=== PATIENT | male | born 1960 | race Caucasian/White ===

== ENCOUNTER 2018-05-25 16:38 | Observation (INO) ==
[2018-05-25] MEDS ORDERED: ALBUTEROL/IPRATROPIUM 3 ML NEB RESP TX STA ×3 (17:16→17:17)
[2018-05-25 17:28] LABS: Basophils # 0.1 10*3/uL (0.0-0.2); Basophils % 0.5 % (0.0-0.8); Eosinophils # 0.1 10*3/uL (0.0-0.87); Eosinophils % 0.9 % (0.00-10.9); Hematocrit 51.3 VOL% (42.0-52.0); Hemoglobin 17.1 GM/DL (14.0-18.0); Immature Granulocytes % 0.5 %; Immature Granulocytes Absolute 0.05 #; Lymphocytes % 19.5 % (21.2-54.2); Mean Corpuscular HGB Conc 33.3 GM/DL (32-36); Mean Corpuscular Hemoglobin 32 PG (27-34); Mean Corpuscular Volume 95.2 FL (87-102); Mean Platelet Volume 11.9 FL (9.6-12.0); Monocytes # 0.7 10*3/uL (0.11-0.8); Monocytes % 7.3 % (1.7-12.7); Neutrophils # 7.2 10*3/uL (1.4-7.4); Neutrophils % 71.3 % (38.7-73.9); Platelet Count 171 T/CUMM (130-400); Red Blood Count 5.39 MC/CUMM (3.8-5.5); Red Cell Distribution Width 13.8 % (9.3-17.3); White Blood Count 10.1 T/CUMM (4-12)
[2018-05-25 17:51] LABS: Bilirubin,Total 0.6 MG/DL (0.2-1.0); Calcium 9.5 MG/DL (8.5-10.1); Osmolality,Calculated 289.1 MOS/KG (273-304); Potassium 4.1 MMOL/L (3.5-5.1); Total Protein 7.3 G/DL (6.4-8.3)
[2018-05-25 17:54] LABS: ABG HCO3 23.6 MMOL/L (20-26); ABG Oxygen Saturation 97.2 % (95-100); ABG PCO2 40.4 MM HG (35-48); ABG PH 7.382 (7.35-7.45); ABG PO2 76.2 MM HG (80-95); ABG TCO2 19.9 MMOL/L (23-27)
[2018-05-25 18:01] LABS: Lactic Acid 1.1 MMOL/L (0.4-2.0)
[2018-05-25 18:16] LABS: Apearance,Urine CLEAR (Clear); Bilirubin,Urine Negative (Negative); Blood, Urine Moderate mg/dL (Negative); Glucose,Urine (UA) Negative (Negative); Ketones,Urine 20 mg/dL (Negative); Mucus,Urine Occasional /LPF (Occasional); Nitrite,Urine Negative (Negative); Protein,Urine 100 MG/DL; RBC,Urine 26 /HPF (0-4); Squamous Epithelial Cell,Urine Occasional /HPF (0-10); Urine Color Yellow (Yellow); Urine Specific Gravity 1.021 (1.001-1.035); WBC,Urine 6 /HPF (0-6)
[2018-05-25] MEDS ORDERED: DOXYCYCLINE HYCLATE 100 MG CAPSULE PO STA (18:57)
[2018-05-25] MEDS ORDERED: methylPREDNISolone SOD SUC 125 MG/2 ML VIAL IV STA (18:57)
[2018-05-25] MEDS ORDERED: DEXTROSE 50% 25 GM/50 ML VIAL IV PRN (19:46)
[2018-05-25] MEDS ORDERED: GLUCAGON 1 MG VIAL IM PRN (19:46)
[2018-05-25] MEDS ORDERED: ACETAMINOPHEN 325 MG TABLET PO PRN (19:46)
[2018-05-25] MEDS ORDERED: ONDANSETRON 4 MG/2 ML VIAL IV PRN (19:46)
[2018-05-25] MEDS: BRIMONIDINE 0.1% OPH SOLN 5 ML BOTTLE LEFT EYE SCH (21:59)
[2018-05-25] MEDS: PREGABALIN 75 MG CAPSULE PO SCH (21:59)
[2018-05-25] MEDS: ATORVASTATIN 40 MG TABLET PO SCH (21:59)
[2018-05-25] MEDS: BUDESONIDE/FORMOTEROL 80-4.5 INHALER 6.9 GM INH SCH (22:00)
[2018-05-25] MEDS: ENOXAPARIN 40 MG/0.4 ML SYRINGE SUBCUT SCH (22:00)
[2018-05-25] MEDS: SODIUM CHLORIDE 0.9% 1,000 ML IV SCH (22:07)
[2018-05-25] MEDS: INSULIN LISPRO 100 UNIT/ML SUBCUT SCH (22:10)
[2018-05-26] MEDS: ALBUTEROL/IPRATROPIUM 3 ML NEB RESP TX SCH ×4 (00:20→19:32)
[2018-05-26 05:31] LABS: Basophils % 0.3 % (0.0-0.8); Hematocrit 48.5 VOL% (42.0-52.0); Hemoglobin 15.6 GM/DL (14.0-18.0); Immature Granulocytes % 0.4 %; Immature Granulocytes Absolute 0.03 #; Mean Corpuscular HGB Conc 32.2 GM/DL (32-36); Mean Corpuscular Hemoglobin 31 PG (27-34); Mean Corpuscular Volume 95.8 FL (87-102); Mean Platelet Volume 12.3 FL (9.6-12.0); Monocytes # 0.1 10*3/uL (0.11-0.8); Monocytes % 1.1 % (1.7-12.7); Neutrophils # 6.2 10*3/uL (1.4-7.4); Neutrophils % 84.2 % (38.7-73.9); Platelet Count 169 T/CUMM (130-400); Red Blood Count 5.06 MC/CUMM (3.8-5.5); Red Cell Distribution Width 13.7 % (9.3-17.3); White Blood Count 7.4 T/CUMM (4-12)
[2018-05-26 05:52] LABS: Osmolality,Calculated 284.5 MOS/KG (273-304); Potassium 4.1 MMOL/L (3.5-5.1)
[2018-05-26] MEDS ORDERED: INFLUENZA VIRUS VACCINE 0.5 ML SYRINGE IM ONE (09:00)
[2018-05-26] MEDS: cefTRIAXone 1,000 MG in SYRINGE 1 EACH IV SCH (09:29)
[2018-05-26] MEDS: AZITHROMYCIN 250 MG TABLET PO SCH (09:30)
[2018-05-26] MEDS: glipiZIDE 10 MG TABLET PO SCH (09:33)
[2018-05-26] MEDS: BRIMONIDINE 0.1% OPH SOLN 5 ML BOTTLE LEFT EYE SCH ×2 (09:33→22:16)
[2018-05-26] MEDS: LISINOPRIL 10 MG TABLET PO SCH (09:33)
[2018-05-26] MEDS: BUDESONIDE/FORMOTEROL 80-4.5 INHALER 6.9 GM INH SCH ×2 (09:33→22:16)
[2018-05-26] MEDS: CLOPIDOGREL 75 MG TABLET PO SCH (09:33)
[2018-05-26] MEDS: INSULIN LISPRO 100 UNIT/ML SUBCUT SCH ×4 (11:00→21:53)
[2018-05-26] MEDS: SODIUM CHLORIDE 0.9% 1,000 ML IV SCH (17:33)
[2018-05-26] MEDS: ENOXAPARIN 40 MG/0.4 ML SYRINGE SUBCUT SCH (22:16)
[2018-05-26] MEDS: PREGABALIN 75 MG CAPSULE PO SCH (22:16)
[2018-05-26] MEDS: ATORVASTATIN 40 MG TABLET PO SCH (22:16)
[2018-05-27] MEDS: ALBUTEROL/IPRATROPIUM 3 ML NEB RESP TX SCH ×2 (00:53→07:20)
[2018-05-27 06:19] LABS: Basophils % 0.4 % (0.0-0.8); Eosinophils # 0.1 10*3/uL (0.0-0.87); Hematocrit 45.3 VOL% (42.0-52.0); Hemoglobin 14.8 GM/DL (14.0-18.0); Immature Granulocytes % 0.5 %; Immature Granulocytes Absolute 0.05 #; Lymphocytes # 3.8 10*3/uL (1.4-4.0); Mean Corpuscular HGB Conc 32.7 GM/DL (32-36); Mean Corpuscular Hemoglobin 32 PG (27-34); Monocytes # 0.8 10*3/uL (0.11-0.8); Monocytes % 7.2 % (1.7-12.7); Neutrophils % 55.9 % (38.7-73.9); Platelet Count 152 T/CUMM (130-400); Red Blood Count 4.67 MC/CUMM (3.8-5.5); White Blood Count 10.8 T/CUMM (4-12)
[2018-05-27] MEDS: SODIUM CHLORIDE 0.9% 1,000 ML IV SCH (06:33)
[2018-05-27 06:40] LABS: Calcium 8.3 MG/DL (8.5-10.1); Potassium 3.9 MMOL/L (3.5-5.1)
[2018-05-27 07:55] VITALS: BP 118/49
[2018-05-27] MEDS: AZITHROMYCIN 250 MG TABLET PO SCH (08:09)
[2018-05-27] MEDS: glipiZIDE 10 MG TABLET PO SCH (08:09)
[2018-05-27] MEDS: cefTRIAXone 1,000 MG in SYRINGE 1 EACH IV SCH (08:09)
[2018-05-27] MEDS: CLOPIDOGREL 75 MG TABLET PO SCH (08:09)
[2018-05-27] MEDS: LISINOPRIL 10 MG TABLET PO SCH (08:10)
[2018-05-27] MEDS: INSULIN LISPRO 100 UNIT/ML SUBCUT SCH (08:11)
[2018-05-27] MEDS: BUDESONIDE/FORMOTEROL 80-4.5 INHALER 6.9 GM INH SCH (08:34)
[2018-05-27] MEDS: BRIMONIDINE 0.1% OPH SOLN 5 ML BOTTLE LEFT EYE SCH (08:34)
== END 2018-05-27 11:10 | disposition home health service (06) ==
LOC: N.ED 16:38 → N.EDINP 16:38 → N.2E 20:22
PROVIDERS: ADMIT Internal Medicine; ATTEND Internal Medicine

== ENCOUNTER 2018-09-21 18:00 | Inpatient (IN) ==
[2018-09-21 18:21] LABS: Basophils % 0.4 % (0.0-0.8); Eosinophils # 0.1 10*3/uL (0.0-0.87); Eosinophils % 0.9 % (0.00-10.9); Hematocrit 55.4 VOL% (42.0-52.0); Hemoglobin 18.3 GM/DL (14.0-18.0); Immature Granulocytes % 0.6 %; Immature Granulocytes Absolute 0.06 #; Lymphocytes # 2.1 10*3/uL (1.4-4.0); Lymphocytes % 19.5 % (21.2-54.2); Mean Corpuscular Hemoglobin 32 PG (27-34); Mean Corpuscular Volume 96.2 FL (87-102); Mean Platelet Volume 10.9 FL (9.6-12.0); Monocytes # 0.6 10*3/uL (0.11-0.8); Monocytes % 5.8 % (1.7-12.7); Neutrophils # 7.7 10*3/uL (1.4-7.4); Neutrophils % 72.8 % (38.7-73.9); Platelet Count 191 T/CUMM (130-400); Red Blood Count 5.76 MC/CUMM (3.8-5.5); Red Cell Distribution Width 13.3 % (9.3-17.3); White Blood Count 10.5 T/CUMM (4-12)
[2018-09-21 18:29] LABS: INR 0.9; PT Patient Result 9.9 SECS; Partial Thromboplastin Time 26.2 SECS (0-40)
[2018-09-21 18:42] LABS: Albumin 3.9 G/DL (3.4-5.0); Bilirubin,Total 0.5 MG/DL (0.2-1.0); Calcium 9.5 MG/DL (8.5-10.1); Osmolality,Calculated 277.7 MOS/KG (273-304); Potassium 4.1 MMOL/L (3.5-5.1); Total Protein 7.9 G/DL (6.4-8.3)
[2018-09-21] MEDS ORDERED: ASPIRIN CHEW 81 MG TABLET PO STA (20:52)
[2018-09-21] MEDS ORDERED: ACETAMINOPHEN 325 MG TABLET PO PRN (20:57)
[2018-09-21] MEDS ORDERED: ONDANSETRON 4 MG/2 ML VIAL IV PRN (20:57)
[2018-09-21] MEDS ORDERED: hydrALAZINE 20 MG/1 ML VIAL IV STA (20:57)
[2018-09-21] MEDS ORDERED: BISACODYL 5 MG TABLET PO PRN (20:57)
[2018-09-21] MEDS ORDERED: hydrALAZINE 20 MG/1 ML VIAL IV PRN (20:57)
[2018-09-21] MEDS ORDERED: DEXTROSE 50% 25 GM/50 ML VIAL IV PRN (20:57)
[2018-09-21] MEDS ORDERED: MORPHINE 4 MG/1 ML VIAL IV PRN (20:57)
[2018-09-21] MEDS ORDERED: GLUCAGON 1 MG VIAL IM PRN (20:57)
[2018-09-21] MEDS ORDERED: NICOTINE 21 MG/24 HR PATCH TRANSDERM PRN (20:57)
[2018-09-21 21:30] LABS: Risk Ratio 5.33; Thyroid Stimulating Hormone 0.823 uIU/ml (0.358-3.74)
[2018-09-21] MEDS ORDERED: BRIMONIDINE 0.1% LEFT EYE SCH (22:56)
[2018-09-21] MEDS ORDERED: NON-FORMULARY MEDICATION (Albuterol Inhaler 2 PUFF) INH PRN (22:56)
[2018-09-21] MEDS: SODIUM CHLORIDE 0.9% 1,000 ML IV SCH (23:41)
[2018-09-21] MEDS: ATORVASTATIN 40 MG TABLET PO SCH (23:48)
[2018-09-21] MEDS: PREGABALIN 75 MG CAPSULE PO SCH (23:48)
[2018-09-22] MEDS: INSULIN REGULAR 100 UNIT/ML SUBCUT SCH ×4 (00:24→18:16)
[2018-09-22] MEDS: CLOPIDOGREL 75 MG TABLET PO SCH (08:46)
[2018-09-22] MEDS: PANTOPRAZOLE 40 MG TABLET PO SCH (08:46)
[2018-09-22] MEDS: LISINOPRIL 10 MG TABLET PO SCH (08:46)
[2018-09-22] MEDS: ENOXAPARIN 40 MG/0.4 ML SYRINGE SUBCUT SCH (08:47)
[2018-09-22] MEDS: SODIUM CHLORIDE 0.9% 1,000 ML IV SCH (18:17)
[2018-09-22] MEDS: PREGABALIN 75 MG CAPSULE PO SCH (22:35)
[2018-09-22] MEDS: ATORVASTATIN 40 MG TABLET PO SCH (22:35)
[2018-09-23] MEDS: INSULIN REGULAR 100 UNIT/ML SUBCUT SCH ×4 (00:42→19:39)
[2018-09-23] MEDS: SODIUM CHLORIDE 0.9% 1,000 ML IV SCH ×2 (06:18→21:47)
[2018-09-23] MEDS ORDERED: ALBUTEROL 2.5 MG/3 ML NEB RESP TX PRN (08:00)
[2018-09-23] MEDS: CLOPIDOGREL 75 MG TABLET PO SCH (09:16)
[2018-09-23] MEDS: ENOXAPARIN 40 MG/0.4 ML SYRINGE SUBCUT SCH (09:16)
[2018-09-23] MEDS: PANTOPRAZOLE 40 MG TABLET PO SCH (09:17)
[2018-09-23] MEDS: LISINOPRIL 10 MG TABLET PO SCH (09:17)
[2018-09-23] MEDS: BRIMONIDINE 0.1% OPH SOLN 5 ML BOTTLE LEFT EYE SCH ×2 (12:20→20:59)
[2018-09-23] MEDS: ASPIRIN CHEW 81 MG TABLET PO SCH (13:46)
[2018-09-23] MEDS: ATORVASTATIN 40 MG TABLET PO SCH (20:58)
[2018-09-23] MEDS: PREGABALIN 75 MG CAPSULE PO SCH (20:59)
[2018-09-24] MEDS: INSULIN REGULAR 100 UNIT/ML SUBCUT SCH ×3 (00:15→14:18)
[2018-09-24 05:24] LABS: Osmolality,Calculated 282.1 MOS/KG (273-304); Potassium 3.8 MMOL/L (3.5-5.1)
[2018-09-24 05:36] LABS: Basophils # 0.1 10*3/uL (0.0-0.2); Basophils % 0.6 % (0.0-0.8); Eosinophils # 0.3 10*3/uL (0.0-0.87); Eosinophils % 3.3 % (0.00-10.9); Hematocrit 50.1 VOL% (42.0-52.0); Immature Granulocytes % 0.6 %; Immature Granulocytes Absolute 0.06 #; Lymphocytes # 3.6 10*3/uL (1.4-4.0); Lymphocytes % 37.6 % (21.2-54.2); Mean Corpuscular HGB Conc 32.5 GM/DL (32-36); Mean Corpuscular Hemoglobin 31 PG (27-34); Mean Corpuscular Volume 95.6 FL (87-102); Mean Platelet Volume 11.8 FL (9.6-12.0); Monocytes # 0.6 10*3/uL (0.11-0.8); Monocytes % 6.7 % (1.7-12.7); Neutrophils # 4.9 10*3/uL (1.4-7.4); Neutrophils % 51.2 % (38.7-73.9); Platelet Count 175 T/CUMM (130-400); Red Blood Count 5.24 MC/CUMM (3.8-5.5); White Blood Count 9.5 T/CUMM (4-12)
[2018-09-24 05:37] LABS: Hemoglobin 16.3 GM/DL (14.0-18.0)
[2018-09-24] MEDS: CLOPIDOGREL 75 MG TABLET PO SCH (09:39)
[2018-09-24] MEDS: ASPIRIN CHEW 81 MG TABLET PO SCH (09:39)
[2018-09-24] MEDS: PANTOPRAZOLE 40 MG TABLET PO SCH (09:39)
[2018-09-24] MEDS: LISINOPRIL 10 MG TABLET PO SCH (09:39)
[2018-09-24] MEDS: ENOXAPARIN 40 MG/0.4 ML SYRINGE SUBCUT SCH (09:39)
[2018-09-24] MEDS: BRIMONIDINE 0.1% OPH SOLN 5 ML BOTTLE LEFT EYE SCH (14:17)
[2018-09-24 16:30] VITALS: BP 123/79
== END 2018-09-24 18:33 | disposition home health service (06) | DRG 45 ==
LOC: N.ED 18:00 → N.EDINP 18:00 → SUATTDRO 20:57 → N.2E 22:06 → SUATTDRO 09-23 11:08
PROVIDERS: ADMIT Internal Medicine; ATTEND Internal Medicine

== ENCOUNTER 2018-09-26 18:54 | Inpatient (IN) ==
[2018-09-26] MEDS ORDERED: ONDANSETRON 4 MG/2 ML VIAL IV STA (19:28)
[2018-09-26] MEDS ORDERED: SODIUM CHLORIDE 0.9% 500 ML IV STA (19:28)
[2018-09-26 20:19] LABS: Basophils # 0.1 10*3/uL (0.0-0.2); Basophils % 0.4 % (0.0-0.8); Eosinophils # 0.1 10*3/uL (0.0-0.87); Eosinophils % 0.5 % (0.00-10.9); Hematocrit 53.1 VOL% (42.0-52.0); Hemoglobin 16.8 GM/DL (14.0-18.0); Immature Granulocytes % 0.6 %; Immature Granulocytes Absolute 0.09 #; Lymphocytes # 2.1 10*3/uL (1.4-4.0); Lymphocytes % 13.7 % (21.2-54.2); Mean Corpuscular HGB Conc 31.6 GM/DL (32-36); Mean Corpuscular Hemoglobin 31 PG (27-34); Mean Corpuscular Volume 97.4 FL (87-102); Mean Platelet Volume 11.1 FL (9.6-12.0); Monocytes # 1.2 10*3/uL (0.11-0.8); Monocytes % 7.6 % (1.7-12.7); Neutrophils # 11.8 10*3/uL (1.4-7.4); Neutrophils % 77.2 % (38.7-73.9); Platelet Count 178 T/CUMM (130-400); Red Blood Count 5.45 MC/CUMM (3.8-5.5); Red Cell Distribution Width 13.3 % (9.3-17.3); White Blood Count 15.3 T/CUMM (4-12)
[2018-09-26 20:28] LABS: INR 0.9
[2018-09-26 20:40] LABS: Alanine Aminotransferase 31 U/L (16-61); Albumin 3.8 G/DL (3.4-5.0); Alkaline Phosphatase 111 U/L (45-117); Aspartate Amino Transferase 22 U/L (0-37); Blood Urea Nitrogen 25 MG/DL (7-18); Calcium 9.1 MG/DL (8.5-10.1); Glucose 113 MG/DL (74-106); Osmolality,Calculated 281.5 MOS/KG (273-304); Potassium 4.3 MMOL/L (3.5-5.1); Sodium 139 MMOL/L (136-145); Total Protein 7.5 G/DL (6.4-8.3)
[2018-09-26 21:04] LABS: Apearance,Urine CLEAR (Clear); Bacteria,Urine Occasional /HPF (Few); Bilirubin,Urine Negative (Negative); Blood, Urine Negative (Negative); Glucose,Urine (UA) Negative (Negative); Hyaline Casts,Urine 4 /LPF (0-3); Ketones,Urine 20 mg/dL (Negative); Mucus,Urine Occasional /LPF (Occasional); Nitrite,Urine Negative (Negative); Protein,Urine 100 MG/DL; RBC,Urine 5 /HPF (0-4); Squamous Epithelial Cell,Urine Occasional /HPF (0-10); Urine Color Amber (Yellow); Urine Specific Gravity 1.024 (1.001-1.035); WBC,Urine 3 /HPF (0-6)
[2018-09-26 21:06] LABS: Troponin I < 0.015 NG/ML (0.00-0.045)
[2018-09-26 21:32] LABS: Barbiturates Screen,Urine Negative (Negative); Benzodiazepines Screen,Urine Negative (Negative); Cannabinoid Screen,Urine Negative (Negative); Opiate Screen,Urine Positive (Negative); Phencyclidine Screen,Urine Negative (Negative)
[2018-09-26] MEDS ORDERED: ONDANSETRON 4 MG/2 ML VIAL IV PRN (21:43)
[2018-09-26] MEDS ORDERED: DEXTROSE 50% 25 GM/50 ML SYRINGE IV PRN (21:43)
[2018-09-26] MEDS ORDERED: ACETAMINOPHEN 325 MG TABLET PO PRN (21:43)
[2018-09-26] MEDS ORDERED: traZODone 50 MG TABLET PO PRN (21:43)
[2018-09-26] MEDS ORDERED: GLUCAGON 1 MG VIAL IM PRN (21:43)
[2018-09-26] MEDS ORDERED: ENOXAPARIN 40 MG/0.4 ML SYRINGE SUBCUT SCH (22:00)
[2018-09-27] MEDS ORDERED: ALBUTEROL 2.5 MG/3 ML NEB RESP TX PRN (00:33)
[2018-09-27] MEDS: SODIUM CHLORIDE 0.9% 1,000 ML IV SCH ×3 (01:21→22:30)
[2018-09-27] MEDS: ATORVASTATIN 40 MG TABLET PO SCH ×2 (01:42→20:58)
[2018-09-27] MEDS: PREGABALIN 75 MG CAPSULE PO SCH ×2 (01:42→20:58)
[2018-09-27] MEDS: BRIMONIDINE 0.1% OPH SOLN 5 ML BOTTLE LEFT EYE SCH ×3 (01:42→20:58)
[2018-09-27] MEDS: INSULIN LISPRO 100 UNIT/ML SUBCUT SCH ×5 (01:51→20:59)
[2018-09-27 05:15] LABS: Basophils # 0.1 10*3/uL (0.0-0.2); Basophils % 0.4 % (0.0-0.8); Eosinophils # 0.1 10*3/uL (0.0-0.87); Eosinophils % 0.9 % (0.00-10.9); Hematocrit 48.9 VOL% (42.0-52.0); Hemoglobin 15.6 GM/DL (14.0-18.0); Immature Granulocytes % 0.6 %; Immature Granulocytes Absolute 0.08 #; Lymphocytes % 15.5 % (21.2-54.2); Mean Corpuscular HGB Conc 31.9 GM/DL (32-36); Mean Corpuscular Hemoglobin 31 PG (27-34); Mean Corpuscular Volume 97.6 FL (87-102); Mean Platelet Volume 11.5 FL (9.6-12.0); Monocytes % 7.4 % (1.7-12.7); Neutrophils # 9.9 10*3/uL (1.4-7.4); Neutrophils % 75.2 % (38.7-73.9); Platelet Count 171 T/CUMM (130-400); Red Blood Count 5.01 MC/CUMM (3.8-5.5); Red Cell Distribution Width 13.4 % (9.3-17.3); White Blood Count 13.1 T/CUMM (4-12)
[2018-09-27 05:41] LABS: Calcium 8.8 MG/DL (8.5-10.1); Osmolality,Calculated 284.3 MOS/KG (273-304); Potassium 4.1 MMOL/L (3.5-5.1)
[2018-09-27] MEDS ORDERED: TUBERCULIN SKIN TEST 0.1 ML SYRINGE INTRADERM ONE (10:00)
[2018-09-27] MEDS: NICOTINE 21 MG/24 HR PATCH TRANSDERM PRN (10:30)
[2018-09-27] MEDS: glipiZIDE 10 MG TABLET PO SCH (10:30)
[2018-09-27] MEDS: LISINOPRIL 10 MG TABLET PO SCH (10:30)
[2018-09-28] MEDS: INSULIN LISPRO 100 UNIT/ML SUBCUT SCH ×4 (07:55→22:10)
[2018-09-28] MEDS: BRIMONIDINE 0.1% OPH SOLN 5 ML BOTTLE LEFT EYE SCH ×2 (09:07→20:21)
[2018-09-28] MEDS: LISINOPRIL 10 MG TABLET PO SCH (09:07)
[2018-09-28] MEDS: glipiZIDE 10 MG TABLET PO SCH (09:07)
[2018-09-28] MEDS: DOCUSATE SODIUM 100 MG CAPSULE PO PRN (09:07)
[2018-09-28] MEDS: NICOTINE 21 MG/24 HR PATCH TRANSDERM PRN (09:37)
[2018-09-28] MEDS ORDERED: TUBERCULIN SKIN TEST 0.1 ML SYRINGE INTRADERM ONE (11:02)
[2018-09-28] MEDS: SODIUM CHLORIDE 0.9% 1,000 ML IV SCH (13:22)
[2018-09-28] MEDS: ATORVASTATIN 40 MG TABLET PO SCH (20:14)
[2018-09-28] MEDS: PREGABALIN 75 MG CAPSULE PO SCH (20:14)
[2018-09-29] MEDS: SODIUM CHLORIDE 0.9% 1,000 ML IV SCH (00:41)
[2018-09-29] MEDS: INSULIN LISPRO 100 UNIT/ML SUBCUT SCH ×4 (07:00→20:50)
[2018-09-29] MEDS: BRIMONIDINE 0.1% OPH SOLN 5 ML BOTTLE LEFT EYE SCH ×2 (10:50→20:49)
[2018-09-29] MEDS: glipiZIDE 10 MG TABLET PO SCH (10:54)
[2018-09-29] MEDS: LISINOPRIL 10 MG TABLET PO SCH (10:54)
[2018-09-29] MEDS: NICOTINE 21 MG/24 HR PATCH TRANSDERM PRN (11:02)
[2018-09-29] MEDS: PREGABALIN 75 MG CAPSULE PO SCH (20:48)
[2018-09-29] MEDS: ATORVASTATIN 40 MG TABLET PO SCH (20:48)
[2018-09-30] MEDS: INSULIN LISPRO 100 UNIT/ML SUBCUT SCH ×4 (07:57→21:56)
[2018-09-30] MEDS: BRIMONIDINE 0.1% OPH SOLN 5 ML BOTTLE LEFT EYE SCH ×2 (08:33→22:11)
[2018-09-30] MEDS: LISINOPRIL 10 MG TABLET PO SCH (08:34)
[2018-09-30] MEDS: glipiZIDE 10 MG TABLET PO SCH (08:34)
[2018-09-30] MEDS: NICOTINE 21 MG/24 HR PATCH TRANSDERM PRN (11:25)
[2018-09-30] MEDS: ZINC OXIDE PASTE 113 GM TUBE TOP SCH ×2 (11:26→22:09)
[2018-09-30 11:44] LABS: Basophils % 0.5 % (0.0-0.8); Eosinophils # 0.1 10*3/uL (0.0-0.87); Eosinophils % 0.8 % (0.00-10.9); Hematocrit 42.4 VOL% (42.0-52.0); Hemoglobin 14.2 GM/DL (14.0-18.0); Immature Granulocytes % 0.5 %; Immature Granulocytes Absolute 0.03 #; Lymphocytes % 15.4 % (21.2-54.2); Mean Corpuscular HGB Conc 33.5 GM/DL (32-36); Mean Corpuscular Hemoglobin 32 PG (27-34); Mean Corpuscular Volume 95.1 FL (87-102); Mean Platelet Volume 11.3 FL (9.6-12.0); Monocytes # 0.5 10*3/uL (0.11-0.8); Monocytes % 8.4 % (1.7-12.7); Neutrophils # 4.8 10*3/uL (1.4-7.4); Neutrophils % 74.4 % (38.7-73.9); Platelet Count 123 T/CUMM (130-400); Red Blood Count 4.46 MC/CUMM (3.8-5.5); Red Cell Distribution Width 13.1 % (9.3-17.3); White Blood Count 6.4 T/CUMM (4-12)
[2018-09-30 12:08] LABS: Alanine Aminotransferase 23 U/L (16-61); Albumin 2.9 G/DL (3.4-5.0); Alkaline Phosphatase 62 U/L (45-117); Aspartate Amino Transferase 49 U/L (0-37); Bilirubin,Total < 0.39 MG/DL (0.2-1.0); Blood Urea Nitrogen 16 MG/DL (7-18); Calcium 8.1 MG/DL (8.5-10.1); Glucose 117 MG/DL (74-106); Potassium 3.6 MMOL/L (3.5-5.1); Sodium 136 MMOL/L (136-145); Total Protein 6.5 G/DL (6.4-8.3)
[2018-09-30 12:37] LABS: Apearance,Urine CLEAR (Clear); Bilirubin,Urine Negative (Negative); Blood, Urine Large mg/dL (Negative); Glucose,Urine (UA) Negative (Negative); Ketones,Urine Negative (Negative); Nitrite,Urine Negative (Negative); Protein,Urine Negative; RBC,Urine 1361 /HPF (0-4); Urine Color Straw (Yellow); Urine Specific Gravity 1.005 (1.001-1.035); Urine Urobilinogen < 2.0 EU/DL (0.2-1.0); WBC,Urine 4 /HPF (0-6)
[2018-09-30] MEDS ORDERED: AZITHROMYCIN INJ 500 MG in SODIUM CHLORIDE 0.9% 250 ML IV ONE (17:00)
[2018-09-30] MEDS: cefTRIAXone 1,000 MG in SYRINGE 1 EACH IV SCH (17:25)
[2018-09-30] MEDS: DOCUSATE SODIUM 100 MG CAPSULE PO PRN (22:10)
[2018-09-30] MEDS: PREGABALIN 75 MG CAPSULE PO SCH (22:10)
[2018-09-30] MEDS: ATORVASTATIN 40 MG TABLET PO SCH (22:10)
[2018-10-01] MEDS: INSULIN LISPRO 100 UNIT/ML SUBCUT SCH ×4 (08:58→22:24)
[2018-10-01] MEDS: glipiZIDE 10 MG TABLET PO SCH (08:58)
[2018-10-01] MEDS ORDERED: TUBERCULIN SKIN TEST 0.1 ML SYRINGE INTRADERM ONE (09:11)
[2018-10-01] MEDS: ZINC OXIDE PASTE 113 GM TUBE TOP SCH ×2 (09:26→22:24)
[2018-10-01] MEDS: LISINOPRIL 10 MG TABLET PO SCH (09:26)
[2018-10-01] MEDS: BRIMONIDINE 0.1% OPH SOLN 5 ML BOTTLE LEFT EYE SCH ×2 (09:30→22:21)
[2018-10-01] MEDS ORDERED: NEOMYCIN/POLYMYXIN IRRIG SOLN 1 ML AMP BLADDERIRR ONE (12:58)
[2018-10-01] MEDS ORDERED: SUGAMMADEX 200 MG/2 ML VIAL IV ONE (13:35)
[2018-10-01] MEDS ORDERED: SODIUM CHLORIDE 0.9% IV ONE (13:54)
[2018-10-01] MEDS ORDERED: METHOTREXATE IV ONE (13:54)
[2018-10-01] MEDS ORDERED: MITOMYCIN INTRAVESIC ONE (14:15)
[2018-10-01] MEDS ORDERED: PROPOFOL 200 MG/20 ML VIAL IV ONE (14:16)
[2018-10-01] MEDS ORDERED: ePHEDrine 50 MG/ML AMP ONE (14:17)
[2018-10-01] MEDS ORDERED: PHENYLEPHRINE 1 MG/10 ML SYRINGE IV ONE (14:17)
[2018-10-01] MEDS ORDERED: fentaNYL 100 MCG/2 ML VIAL ONE (14:17)
[2018-10-01] MEDS ORDERED: ONDANSETRON 4 MG/2 ML VIAL ONE (14:17)
[2018-10-01] MEDS ORDERED: ROCURONIUM 100 MG/10 ML VIAL IV ONE (14:18)
[2018-10-01] MEDS ORDERED: SEVOFLURANE 1 UNIT/15 MINUTE INH ONE (14:18)
[2018-10-01] MEDS ORDERED: ALBUTEROL/IPRATROPIUM 3 ML NEB RESP TX ONE (14:21)
[2018-10-01] MEDS ORDERED: AZITHROMYCIN INJ 250 MG in SODIUM CHLORIDE 0.9% 250 ML IV SCH (16:30)
[2018-10-01] MEDS: AZITHROMYCIN 250 MG TABLET PO SCH (16:45)
[2018-10-01] MEDS: cefTRIAXone 1,000 MG in SYRINGE 1 EACH IV SCH ×2 (17:10→21:57)
[2018-10-01] MEDS: ATORVASTATIN 40 MG TABLET PO SCH (22:21)
[2018-10-01] MEDS: DOCUSATE SODIUM 100 MG CAPSULE PO PRN (22:22)
[2018-10-01] MEDS: PREGABALIN 75 MG CAPSULE PO SCH (22:22)
[2018-10-02 04:31] LABS: Basophils % 0.7 % (0.0-0.8); Eosinophils # 0.1 10*3/uL (0.0-0.87); Hematocrit 44.2 VOL% (42.0-52.0); Hemoglobin 14.3 GM/DL (14.0-18.0); Immature Granulocytes % 0.5 %; Immature Granulocytes Absolute 0.03 #; Lymphocytes # 1.6 10*3/uL (1.4-4.0); Lymphocytes % 26.6 % (21.2-54.2); Mean Corpuscular HGB Conc 32.4 GM/DL (32-36); Mean Corpuscular Hemoglobin 31 PG (27-34); Mean Corpuscular Volume 95.7 FL (87-102); Mean Platelet Volume 11.8 FL (9.6-12.0); Monocytes # 0.5 10*3/uL (0.11-0.8); Monocytes % 8.2 % (1.7-12.7); Neutrophils # 3.7 10*3/uL (1.4-7.4); Platelet Count 137 T/CUMM (130-400); Red Blood Count 4.62 MC/CUMM (3.8-5.5); Red Cell Distribution Width 13.1 % (9.3-17.3); White Blood Count 5.9 T/CUMM (4-12)
[2018-10-02 04:54] LABS: Band Neutrophils 1 % (0-10); Eosinophils 3 % (0-10); Hypochromasia 1+; Lymphocytes 24 % (20-55); Platelet Estimate Normal; Segmented Neutrophils 63 % (50-85); Total Cells Counted 100
[2018-10-02 05:05] LABS: Albumin 2.8 G/DL (3.4-5.0); Bilirubin,Total 0.6 MG/DL (0.2-1.0); Calcium 8.1 MG/DL (8.5-10.1); Osmolality,Calculated 280.5 MOS/KG (273-304); Potassium 3.8 MMOL/L (3.5-5.1); Total Protein 6.6 G/DL (6.4-8.3)
[2018-10-02] MEDS: LISINOPRIL 10 MG TABLET PO SCH (09:10)
[2018-10-02] MEDS: AZITHROMYCIN 250 MG TABLET PO SCH (09:10)
[2018-10-02] MEDS: ZINC OXIDE PASTE 113 GM TUBE TOP SCH ×2 (09:10→21:08)
[2018-10-02] MEDS: glipiZIDE 10 MG TABLET PO SCH (09:10)
[2018-10-02] MEDS: BRIMONIDINE 0.1% OPH SOLN 5 ML BOTTLE LEFT EYE SCH ×2 (09:10→21:09)
[2018-10-02] MEDS: NICOTINE 21 MG/24 HR PATCH TRANSDERM PRN (09:18)
[2018-10-02] MEDS: INSULIN LISPRO 100 UNIT/ML SUBCUT SCH ×3 (09:19→16:59)
[2018-10-02] MEDS ORDERED: BACLOFEN 10 MG TABLET PO PRN (11:19)
[2018-10-02] MEDS: ATORVASTATIN 40 MG TABLET PO SCH (21:08)
[2018-10-02] MEDS: PREGABALIN 75 MG CAPSULE PO SCH (21:08)
[2018-10-02] MEDS: cefTRIAXone 1,000 MG in SYRINGE 1 EACH IV SCH (21:08)
[2018-10-03] MEDS: INSULIN LISPRO 100 UNIT/ML SUBCUT SCH ×3 (00:51→11:56)
[2018-10-03] MEDS: glipiZIDE 10 MG TABLET PO SCH (09:27)
[2018-10-03] MEDS: LISINOPRIL 10 MG TABLET PO SCH (09:27)
[2018-10-03] MEDS: AZITHROMYCIN 250 MG TABLET PO SCH (09:27)
[2018-10-03] MEDS: BRIMONIDINE 0.1% OPH SOLN 5 ML BOTTLE LEFT EYE SCH (09:28)
[2018-10-03] MEDS: ZINC OXIDE PASTE 113 GM TUBE TOP SCH (10:52)
[2018-10-03 11:57] VITALS: BP 140/71
== END 2018-10-03 12:50 | disposition swing bed (61) | DRG 952 ==
LOC: EDUNIT# → N.ED 18:54 → SUATTDRO 21:04 → N.EDINP 21:04 → N.2E 21:40
PROVIDERS: ADMIT Internal Medicine; ATTEND Internal Medicine